=== PATIENT | female | born 1965 | race Caucasian/White ===

== ENCOUNTER 2018-02-07 07:04 | Observation (INO) | payer MEDICARE ==
[~2018-02-07] VITALS: Ht 151.1 cm; Wt 120.2 kg
[~2018-02-07 07:04] MED LIST: ACETAMINOPHEN 650 MG/20.3 ML UDC PO PRN; AMLO10TA6 PO; BACL20TA PO; BISACODYL 10 MG SUPP PR PRN; CEFAZOLIN PMX 2GM/50ML 50 ML IVPB SCH; DIPHENHYDRAMINE 25 MG CAPSULE PO PRN; DULO60CA7 PO; HYDR25TA6 PO; HYDROcodone/APAP 5/325 TABLET PO PRN; LISI40TA PO; MAGNESIUM HYDROXIDE 8%, 30ML UDC PO PRN; MELA10CA PO; MELO15TA24 PO; ONDANSETRON 2MG/ML, 2ML IV PRN; ONDANSETRON 4 MG TABLET PO PRN; SCOPOLAMINE PATCH, 1.5MG PATCH.TD72 TD ONE; SENNA/DOCUSATE TABLET PO PRN; Tylenol PM PO; ZOLPIDEM 5MG TABLET PO PRN
[2018-02-07] MEDS ORDERED: LACTATED RINGERS 1,000 ML IV SCH (07:17)
[2018-02-07] MEDS ORDERED: ACETAMINOPHEN 500 MG TABLET PO ONE (07:30)
[2018-02-07] MEDS ORDERED: GABAPENTIN 300 MG CAPSULE PO ONE (07:30)
[2018-02-07] MEDS ORDERED: MIDAZOLAM 1 MG/ML, 2ML ONE (07:41)
[2018-02-07] MEDS ORDERED: FENTANYL PF 250 MCG/5ML ONE (07:42)
[2018-02-07] MEDS ORDERED: LIDOCAINE-MPF 2% ,5ML ONE (07:54)
[2018-02-07] MEDS ORDERED: BUPIVACAINE/PF 0.25% ONE (07:55)
[2018-02-07] MEDS ORDERED: GLYCOPYRROLATE 0.2MG/1ML, 5ML ONE (07:55)
[2018-02-07] MEDS ORDERED: ONDANSETRON 2MG/ML, 2ML ONE (07:55)
[2018-02-07] MEDS ORDERED: ROCURONIUM 10MG/ML,5ML ONE (07:55)
[2018-02-07] MEDS ORDERED: SUCCINYLCHOLINE 20 MG/ML, 10ML ONE (07:55)
[2018-02-07] MEDS ORDERED: NEOSTIGMINE 1 MG/ML, 10ML ONE (07:55)
[2018-02-07] MEDS ORDERED: PROPOFOL 10 MG/ML, 20ML ONE (07:55)
[2018-02-07] MEDS ORDERED: DEXAMETHASONE 4 MG/ML, 1ML ONE (07:55)
[2018-02-07] MEDS ORDERED: CEFAZOLIN 1,000 MG ONE (07:55)
[2018-02-07] MEDS ORDERED: KETOROLAC 60 MG/2 ML ONE (08:41)
[2018-02-07] MEDS ORDERED: TRANEXAMIC ACID 100 MG/ML, 10ML ONE ×2 (08:41)
[2018-02-07] MEDS ORDERED: VANCOMYCIN 1,000 MG ONE (08:42)
[2018-02-07] MEDS ORDERED: EPINEPHRINE 1 MG/ML, 1ML ONE (08:42)
[2018-02-07] MEDS ORDERED: ROPIvacaine/PF 0.5%, 30 ML ONE (08:46)
[2018-02-07] MEDS: HYDROCHLOROTHIAZIDE 25 MG TABLET PO SCH (09:00)
[2018-02-07] MEDS: BACLOFEN 10 MG TABLET PO SCH ×2 (09:00→20:50)
[2018-02-07] MEDS: DOCUSATE 100 MG CAPSULE PO SCH ×2 (09:00→20:50)
[2018-02-07] MEDS: LISINOPRIL 20 MG TABLET PO SCH (09:00)
[2018-02-07] MEDS: DULOXETINE 30 MG CAPSULE.DR PO SCH (09:00)
[2018-02-07] MEDS: AMLODIPINE 10 MG TAB PO SCH (09:00)
[2018-02-07] MEDS ORDERED: OXYcodone 5 MG/5 ML ORAL.SOL UDC PO PRN (09:30)
[2018-02-07] MEDS ORDERED: DIAZEPAM 5 MG/ML, 2ML IVPush PRN (09:30)
[2018-02-07] MEDS ORDERED: PROMETHAZINE 25 MG/ML, 1ML IV PRN (09:30)
[2018-02-07] MEDS ORDERED: ONDANSETRON ODT 8 MG PO PRN (09:30)
[2018-02-07] MEDS ORDERED: ONDANSETRON 2MG/ML, 2ML IV PRN (09:30)
[2018-02-07] MEDS ORDERED: LABETALOL 5MG/ML, 20ML IV PRN (09:30)
[2018-02-07] MEDS ORDERED: MEPERIDINE/PF 25MG/0.5ML IVPush PRN (09:30)
[2018-02-07] MEDS ORDERED: hydrALAzine 20 MG/ML, 1ML IV PRN (09:30)
[2018-02-07] MEDS ORDERED: FENTANYL PF 100 MCG/2ML ONE ×3 (10:09→11:37)
[2018-02-07] MEDS ORDERED: OXYcodone 5 MG/5 ML ORAL.SOL UDC ONE (11:18)
[2018-02-07] MEDS ORDERED: HYDROmorphone 2 MG/ML, 1ML ONE ×3 (11:18→21:59)
[2018-02-07] MEDS: HYDROmorphone 2 MG/ML, 1ML IVPush PRN ×4 (11:19→11:45)
[2018-02-07] MEDS: FENTANYL PF 100 MCG/2ML IV PRN ×2 (11:22→11:33)
[2018-02-07] MEDS ORDERED: MEPERIDINE/PF 50 MG/ML ONE (11:37)
[2018-02-07 12:30] VITALS: BP 122/87
[2018-02-07] MEDS: NS + 20MEQ KCL 1,000 ML IV SCH ×2 (13:34→20:52)
[2018-02-07] MEDS: OXYcodone IR 5MG TABLET PO PRN ×2 (15:22→19:36)
[2018-02-07] MEDS: HYDROmorphone 1 MG/ML, 1ML IV PRN ×2 (15:50→22:02)
[2018-02-07] MEDS: ASPIRIN 81 MG TABLET EC PO SCH (17:42)
[2018-02-07] MEDS: CEFAZOLIN PMX 2GM/50ML 50 ML IVPB SCH (17:44)
[2018-02-07 19:00] VITALS: BP 132/87
[2018-02-08] MEDS ORDERED: OXYC5CAP2 PO (00:57)
[2018-02-08] MEDS ORDERED: TRAM50TA2 PO (00:58)
[2018-02-08] MEDS ORDERED: MELO7.5T31 PO (00:59)
[2018-02-08 01:50] VITALS: BP 144/90
[2018-02-08] MEDS: CEFAZOLIN PMX 2GM/50ML 50 ML IVPB SCH ×2 (01:51→09:03)
[2018-02-08] MEDS: OXYcodone IR 5MG TABLET PO PRN ×3 (01:52→10:25)
[2018-02-08 01:54] VITALS: BP 114/66
[2018-02-08] MEDS ORDERED: DEXAMETHASONE 4 MG/ML, 1ML IVPush SCH (06:00)
[2018-02-08] MEDS: ASPIRIN 81 MG TABLET EC PO SCH (06:02)
[2018-02-08 07:01] VITALS: BP 144/91
[2018-02-08] MEDS: BACLOFEN 10 MG TABLET PO SCH (08:33)
[2018-02-08] MEDS: AMLODIPINE 10 MG TAB PO SCH (08:33)
[2018-02-08] MEDS: DULOXETINE 30 MG CAPSULE.DR PO SCH (08:33)
[2018-02-08] MEDS: HYDROCHLOROTHIAZIDE 25 MG TABLET PO SCH (08:34)
[2018-02-08] MEDS: LISINOPRIL 20 MG TABLET PO SCH (08:34)
[2018-02-08] MEDS: DOCUSATE 100 MG CAPSULE PO SCH (08:34)
== END 2018-02-08 11:50 | disposition home or self-care (01) ==
LOC: OUT 07:04 → 4NOR 12:37 → OUT 23:54
PROVIDERS: ADMIT Orthopaedic Surgery; ATTEND Orthopaedic Surgery
DX: M17.11 Unilateral primary osteoarthritis, right knee (principal); E66.01 Morbid (severe) obesity due to excess calories; Z96.651 Presence of right artificial knee joint
CPT/HCPCS: 27447; 36415; 85014; 85018; 96365; 96366; 96375; 96376; 97162; 97535; C1713; C1776; G0378; G8978; G8979; G8990; J0171; J0330; J0690; J1100; J1170; J1885; J2175; J2250; J2405; J2704; J2710; J2795; J3010; J3370; J3480; J3490; J7120; Q0162